=== PATIENT | male | born 1990 | race Caucasian/White ===

== ENCOUNTER → 2016-11-11 | Outpatient (CLI) | payer BC | LOC: FIMAGING 08:32 | PROVIDERS: ATTEND Internal Medicine Endocrinology, Diabetes & Metabolism | DX: C73 Malignant neoplasm of thyroid gland (principal) | CPT/HCPCS: A9517 ==

== ENCOUNTER → 2017-02-02 | Outpatient (CLI) | payer BC | LOC: BMCIMAGING 10:50 | PROVIDERS: ATTEND Internal Medicine | DX: Z08 Encounter for follow-up examination after completed treatment for malignant neoplasm (principal) | CPT/HCPCS: 76536-PO ==

== ENCOUNTER → 2017-04-26 | Outpatient (CLI) | payer BC | LOC: FIMAGING 17:07 | PROVIDERS: ATTEND Internal Medicine Endocrinology, Diabetes & Metabolism | DX: Z08 Encounter for follow-up examination after completed treatment for malignant neoplasm (principal); Z90.89 Acquired absence of other organs ==

== ENCOUNTER → 2017-09-02 | Outpatient (CLI) | payer BC | LOC: BMCIMAGING 13:24 | PROVIDERS: ATTEND Internal Medicine Endocrinology, Diabetes & Metabolism | DX: E04.1 Nontoxic single thyroid nodule (principal); Z85.850 Personal history of malignant neoplasm of thyroid | CPT/HCPCS: 76536-PO ==

== ENCOUNTER → 2017-11-17 | Outpatient (CLI) | payer BC | LOC: FIMAGING 12:06 | PROVIDERS: ATTEND Internal Medicine Endocrinology, Diabetes & Metabolism | DX: C73 Malignant neoplasm of thyroid gland (principal) | CPT/HCPCS: A9528 ==

== ENCOUNTER → 2018-08-11 | Outpatient (CLI) | payer BC | LOC: FIMAGING 13:07 | PROVIDERS: ATTEND Internal Medicine Endocrinology, Diabetes & Metabolism | DX: E04.1 Nontoxic single thyroid nodule (principal); Z85.850 Personal history of malignant neoplasm of thyroid ==

== ENCOUNTER → 2018-09-21 | Outpatient (CLI) | payer BC ==
[~2018-09-21] MED LIST: LIDOCAINE 1% 300 MG/30 ML SDV ONE
== END ==
LOC: FIMAGING 10:31
PROVIDERS: ATTEND Internal Medicine Endocrinology, Diabetes & Metabolism
PROC: 07913ZX Drainage of Right Neck Lymphatic, Percutaneous Approach, Diagnostic (ICD-10-PCS; principal; 2018-09-21)
DX: R59.9 Enlarged lymph nodes, unspecified (principal)

== ENCOUNTER → 2018-10-18 | Outpatient (CLI) | payer BC ==
[~2018-10-18] MED LIST changes: +IOPAMIDOL (ISOVUE 370) 100 ML BTL IV ONE; -LIDOCAINE 1% 300 MG/30 ML SDV ONE
== END ==
LOC: FIMAGING 14:25
PROVIDERS: ATTEND Otolaryngology
DX: Z85.850 Personal history of malignant neoplasm of thyroid (principal)
CPT/HCPCS: Q9967

== ENCOUNTER → 2018-11-30 | Outpatient (CLI) | payer BC | LOC: FIMAGING 10:48 | PROVIDERS: ATTEND Internal Medicine Endocrinology, Diabetes & Metabolism | DX: C73 Malignant neoplasm of thyroid gland (principal) | CPT/HCPCS: 78018; A9528 ==